=== PATIENT | female | born 1990 | race Caucasian/White ===

== ENCOUNTER 2020-07-11 05:49 | Inpatient (IN) | payer OTHER ==
[2020-07-11] MEDS ORDERED: Calcium Carbonate 500 MG Tab.Chew PO PRN (15:27)
[2020-07-11] MEDS ORDERED: Sodium Chloride 0.9% 10 ML Syringe FLUSH PRN (15:27)
[2020-07-11] MEDS ORDERED: Nalbuphine 10 MG/1 ML Vial IVPUSH PRN (15:27)
[2020-07-11] MEDS ORDERED: Oxytocin/Lactated Ringers 10 UNIT/1,000 ML BAG IV SCH ×2 (15:30)
[2020-07-11] MEDS ORDERED: Lactated Ringers 1,000 ML IV SCH (15:30)
[2020-07-11] MEDS ORDERED: Bupivacaine/fentaNYL/NS 100 ML Bag EPIDUR PRN (16:19)
[2020-07-11] MEDS ORDERED: fentaNYL 100 MCG/2 ML SDV EPIDUR PRN (16:19)
[2020-07-11] MEDS ORDERED: diphenhydrAMINE 50 MG/ML SDV IVPUSH PRN (16:19)
[2020-07-11] MEDS ORDERED: ePHEDrine 50 MG/ML SDV IVPUSH PRN (16:19)
[2020-07-11] MEDS ORDERED: Misoprostol 25 MCG (1/4 of 100 MCG) Tab ONE (16:37)
--- NOTE | 2020-07-11 16:47 | PCM.LDHP ---
L&D History of Present Illness - General Date of Service: 07/11/20 Admit Problem/Dx: Patient Status Order with Admit Dx/Problem 07/11/20 15:32 Patient Status [ADT] Routine Admission Diagnosis/Problem Admission Diagnosis/Problem Source of Information: Patient History Limitations: Reports: No Limitations - History of Present Illness Introduction:: Patient is a 29 y/o at 37 0/7 wks who presents for IOL for presumed cholestasis of labor. On 07/09 started to notice some itching of palms and soles of feet. This was most noticeable at night. Persisted all through the weekend. Called clinic this AM and asked to have bile acids drawn. Reviewed in office with patient that given classic symptoms could move on to IOL without waiting for results. Did review risks of cholestasis for . Also discussed that even if bile acids not elevated yet might be trending in that fashion. Did agree. Here now and a little apprehensive. Was planning a home delivery with direct-entry office services representative - Related Data Allergies/Adverse Reactions: Allergies Allergy/AdvReac Type Severity Reaction Status Date / Time No Known Allergies Allergy Verified 07/04/20 17:25 Home Medications: Home Meds [place]-3/DHA/Epa/Fish Oil [[place] 3 500 Softgel] 2 each PO DAILY 07/11/20 [History] Vit C/Ascorbate Calcium,Sodium [Vitamin C] 500 mg PO DAILY 07/11/20 [History] Zinc 20 mg PO DAILY 07/11/20 [History] Past Medical History : 1 Para: 0 LMP (Approximate): Neurological History: Reports: Migraines - Past Surgical History Other Surgical History Comment: Past Surgical History Social & Family History - Tobacco Use Tobacco Use Status *Q: Never Tobacco User - Alcohol Use Alcohol Use History: No - Recreational Drug Use Recreational Drug Use: No H&P Review of Systems - Review of Systems: Review Of Systems: See Below General: Reports: No Symptoms Pulmonary: Reports: No Symptoms Cardiovascular: Reports: No Symptoms Gastrointestinal: Reports: No Symptoms Genitourinary: Reports: No Symptoms Musculoskeletal: Reports: No Symptoms Psychiatric: Reports: No Symptoms Neurological: Reports: No Symptoms L&D Exam - Exam Exam: See Below - Vital Signs Vital Signs: Last Vital Signs Temp 37.8 C 07/11/20 15:32 Pulse 93 07/11/20 15:32 Resp 16 07/11/20 15:32 BP 109/74 07/11/20 15:32 Pulse Ox 97 07/11/20 15:32 Weight: 79.832 kg - OB Specific Contraction Intensity: Irritability Movement: Active Heart Tones: Present Heart Tones per Min: 130 Heart Rate (FHR) Variability: Moderate (6-25 bmp) Presentation: Vertex - Exam General: Alert, Oriented, Cooperative Lungs: Clear to Auscultation, Normal Respiratory Effort Cardiovascular: Regular Rate, Regular Rhythm GI/Abdominal Exam: Soft, Non-Tender Genitourinary: Normal external exam Extremities: Normal Inspection Skin: Warm, Dry, Intact - Patient Data Lab Results Last 24 hrs: Laboratory Results - last 24 hr 07/11/20 07/11/20 Range/Units 15:30 15:49 WBC 10.87 H (3.98-10.04) K/mm3 RBC 3.70 L (3.98-5.22) M/mm3 Hgb 10.6 L (11.2-15.7) gm/dl Hct 33.1 L (34.1-44.9) % MCV 89.5 (79.4-94.8) fl MCH 28.6 (25.6-32.2) pg MCHC 32.0 L (32.2-35.5) g/dl RDW Std Deviation 40.7 (36.4-46.3) fL Plt Count 254 (182-369) K/mm3 MPV 10.4 (9.4-12.3) fl Neut % (Auto) 72.2 H (34.0-71.1) % Lymph % (Auto) 16.7 L (19.3-51.7) % [place] % (Auto) 8.8 (4.7-12.5) % Eos % (Auto) 0.6 L (0.7-5.8) Baso % (Auto) 0.2 (0.1-1.2) % Neut # (Auto) 7.86 H (1.56-6.13) K/mm3 Lymph # (Auto) 1.81 (1.18-3.74) K/mm3 [place] # (Auto) 0.96 H (0.24-0.36) K/mm3 Eos # (Auto) 0.06 (0.04-0.36) K/mm3 Baso # (Auto) 0.02 (0.01-0.08) K/mm3 SARS-CoV-2 RNA (MARCOS) Positive H (NEGATIVE) Result Diagrams: 07/11/20 15:49 - Problem List (1) 37 weeks gestation of SNOMED Code(s): 02791325 ICD Code: Z3A.37 - 37 WEEKS GESTATION OF Status: Acute Current Visit: Yes (2) Cholestasis during SNOMED Code(s): 329126035 ICD Code: O26.619 - LIVER AND BILIARY TRACT DISORD IN , UNSP TRIMESTER; K83.1 - OBSTRUCTION OF BILE DUCT Status: Acute Current Visit: Yes Qualifiers: Trimester: third trimester Qualified Code(s): O26.613 - Liver and biliary tract disorders in , third trimester; K83.1 - Obstruction of bile duct Problem List Initiated/Reviewed/Updated: Yes Orders Last 24hrs: Active Orders 24 hr Category Date Time Status Patient Status [ADT] Routine ADT 07/11/20 15:32 Active Activity as Tolerated [RC] PFP Care 07/11/20 15:32 Active Communication Order [RC] ASDIRECTED Care 07/11/20 15:32 Active Heart Tones [RC] ASDIRECTED Care 07/11/20 15:33 Active Non Stress Test [RC] PER UNIT ROUTINE Care 07/11/20 15:32 Active Notify Provider [RC] ASDIRECTED Care 07/11/20 16:19 Active Notify Provider [RC] PFP Care 07/11/20 15:32 Active Notify Provider [RC] PRN Care 07/11/20 15:32 Active Peripheral IV Care [RC] . DIRECTED Care 07/11/20 15:33 Active Urinary Catheter Assessment [RC] ASDIRECTED Care 07/11/20 15:27 Active Vital Signs [RC] PER UNIT ROUTINE Care 07/11/20 15:32 Active Regular Diet [DIET] Diet 07/11/20 Dinner Active HEP C VIRUS AB [REF] Routine Lab 07/11/20 15:49 Received RAPID PLASMA REAGIN,RPR [CHEM] Routine Lab 07/11/20 15:49 Received Bupivacaine/fentaNYL/NS [fentaNYL/Bupivacaine/NS 2 MCG- Med 07/11/20 16:19 Active 0.125% 100 ML] 100 ml EPIDUR ASDIRECTED PRN Calcium Carbonate [Tums] Med 07/11/20 15:27 Active 1,000 mg PO Q2H PRN Lactated Ringers [Ringers, Lactated] 1,000 ml Med 07/11/20 15:30 Active IV ASDIRECTED Nalbuphine [Nubain] Med 07/11/20 15:27 Active 10 mg IVPUSH Q2H PRN Oxytocin/Lactated Ringers [Pitocin in LR 10 Units/1,000 Med 07/11/20 15:30 Active ML] 10 unit in 1,000 ml IV .CONTINUOUS Oxytocin/Lactated Ringers [Pitocin in LR 10 Units/1,000 Med 07/11/20 15:30 Active ML] 10 unit in 1,000 ml IV TITRATE Sodium Chloride 0.9% [Saline Flush] Med 07/11/20 15:27 Active 10 ml FLUSH ASDIRECTED PRN diphenhydrAMINE [Benadryl] Med 07/11/20 16:19 Active 25 mg IVPUSH Q6H PRN ePHEDrine [ePHEDrine sulfate] Med 07/11/20 16:19 Active 5 mg IVPUSH ASDIRECTED PRN fentaNYL [Sublimaze] Med 07/11/20 16:19 Active 100 mcg EPIDUR Q3H PRN Electronic Heart Tones Ext w TOCO [WOMSER] Oth 07/11/20 15:32 Ordered Routine Electronic Heart Tones Internal [WOMSER] Per Unit Oth 07/11/20 15:32 Ordered Routine Peripheral IV Insertion Adult [OM.PC] Routine Oth 07/11/20 15:32 Ordered Resuscitation Status Routine Resus Stat 07/11/20 15:27 Ordered Medication Orders Calcium Carbonate/Glycine (Calcium Carbonate 500 Mg Tab.Chew) 1,000 mg PO Q2H PRN PRN Reason: Indigestion Diphenhydramine HCl (Diphenhydramine 50 Mg/Ml Sdv) 25 mg IVPUSH Q6H PRN PRN Reason: pruritis Ephedrine Sulfate (Ephedrine 50 Mg/Ml Sdv) 5 mg IVPUSH ASDIRECTED PRN PRN Reason: Hypotension Fentanyl (Fentanyl 100 Mcg/2 Ml Sdv) 100 mcg EPIDUR Q3H PRN PRN Reason: Pain Fentanyl/Bupivacaine HCl (Bupivacaine/Fentanyl/Ns 100 Ml Bag) 100 ml EPIDUR ASDIRECTED PRN PRN Reason: Pain Oxytocin/Lactated Ringer's (Pitocin In Lr 10 Units/1,000 Ml) 10 unit in 1,000 mls @ 500 mls/hr IV .CONTINUOUS VIV Oxytocin/Lactated Ringer's (Pitocin In Lr 10 Units/1,000 Ml) 10 unit in 1,000 mls @ 12 mls/hr IV TITRATE VIV; Protocol Lactated Ringer's (Ringers, Lactated) 1,000 mls @ 100 mls/hr IV ASDIRECTED VIV Nalbuphine HCl (Nalbuphine 10 Mg/1 Ml Vial) 10 mg IVPUSH Q2H PRN PRN Reason: Pain Sodium Chloride (Sodium Chloride 0.9% 10 Ml Syringe) 10 ml FLUSH ASDIRECTED PRN PRN Reason: Keep Vein Open Assessment/Plan Comment:: * Bile acids pending at [place]. CMP done previously and WNL. Continuous monitoring * CBC, RPR, Hep C * Cytotec for IOL to start. Prefers no SVE and so not done. * Reviewed plan and Peds preferences * COVID positive, reviewed PPE
[2020-07-11] MEDS ORDERED: Acetaminophen 325 MG Tab PO PRN (19:20)
[2020-07-11] MEDS ORDERED: Misoprostol 25 MCG (1/4 of 100 MCG) Tab VAG SCH (21:00)
[2020-07-12] MEDS ORDERED: Misoprostol 25 MCG (1/4 of 100 MCG) Tab VAG SCH (04:00)
--- NOTE | 2020-07-12 07:01 | PCM.PNLD ---
Labor Progress Note - VS & Meds Vital Signs: Last Vital Signs Temp 37.8 C 07/11/20 15:32 Pulse 93 07/11/20 15:32 Resp 16 07/11/20 15:32 BP 109/74 07/11/20 15:32 Pulse Ox 97 07/11/20 15:32 Active Medications: Current Medications Acetaminophen (Acetaminophen 325 Mg Tab) 650 mg PO Q4H PRN PRN Reason: Fever Calcium Carbonate/Glycine (Calcium Carbonate 500 Mg Tab.Chew) 1,000 mg PO Q2H PRN PRN Reason: Indigestion Diphenhydramine HCl (Diphenhydramine 50 Mg/Ml Sdv) 25 mg IVPUSH Q6H PRN PRN Reason: pruritis Ephedrine Sulfate (Ephedrine 50 Mg/Ml Sdv) 5 mg IVPUSH ASDIRECTED PRN PRN Reason: Hypotension Fentanyl (Fentanyl 100 Mcg/2 Ml Sdv) 100 mcg EPIDUR Q3H PRN PRN Reason: Pain Fentanyl/Bupivacaine HCl (Bupivacaine/Fentanyl/Ns 100 Ml Bag) 100 ml EPIDUR ASDIRECTED PRN PRN Reason: Pain Oxytocin/Lactated Ringer's (Pitocin In Lr 10 Units/1,000 Ml) 10 unit in 1,000 mls @ 500 mls/hr IV .CONTINUOUS VIV Oxytocin/Lactated Ringer's (Pitocin In Lr 10 Units/1,000 Ml) 10 unit in 1,000 mls @ 12 mls/hr IV TITRATE VIV; Protocol Lactated Ringer's (Ringers, Lactated) 1,000 mls @ 100 mls/hr IV ASDIRECTED VIV Misoprostol (Misoprostol 25 Mcg (1/4 Of 100 Mcg) Tab) 25 mcg VAG Q4H VIV Stop: 07/12/20 08:01 Last Admin: 07/12/20 06:11 Dose: 25 mcg Documented by: Nalbuphine HCl (Nalbuphine 10 Mg/1 Ml Vial) 10 mg IVPUSH Q2H PRN PRN Reason: Pain Sodium Chloride (Sodium Chloride 0.9% 10 Ml Syringe) 10 ml FLUSH ASDIRECTED PRN PRN Reason: Keep Vein Open Discontinued Medications Misoprostol (Misoprostol 25 Mcg (1/4 Of 100 Mcg) Tab) Confirm Administered Dose 25 mcg .ROUTE .STK-MED ONE Stop: 07/11/20 16:38 Last Admin: 07/11/20 16:41 Dose: 25 mcg Documented by: Misoprostol (Misoprostol 25 Mcg (1/4 Of 100 Mcg) Tab) 25 mcg VAG Q4H VIV Stop: 07/12/20 05:01 Last Admin: 07/11/20 23:41 Dose: 25 mcg Documented by: - Uterine Contractions Uterine Monitoring Mode: External [place] Contraction Intensity: Mild Uterine Resting Tone: Soft - Monitoring Monitor Mode: External Ultrasound Heart Rate (FHR) Baseline: 135 Heart Rate (FHR) Variability: Moderate (6-25 bmp) Accelerations: Present, 15x15 Decelerations: None Strip Review: Category I - Vaginal Exam Dilation (cm): 3 Effacement (Percent): 75 Station: -1 Cervical Position: Midposition - Labor Progress (Free Text) Labor Progress: Doing well. S/p 3 doses of Cytotec. Will move on to breast stimulation after cytotec wears off
--- NOTE | 2020-07-12 12:37 | PCM.SN.2 ---
- Free Text/Narrative Note: 1215 This AM patient tried breast stimulation to continue labor process. Had some variable decelerations with this. Feels some contractions, but that they are spaced. Wondering options to go forward. FHT's otherwise reassuring. Reviewed options of repeat attempt a breast stimulation, IV pitocin, one further dose of Cytotec, or AROM. Discussed pros/cons of various options. At this time patient would like to rest/nap and then likely will go back to breast stimulation. Kathy Yoder MD
--- NOTE | 2020-07-12 21:58 | PCM.SN.2 ---
- Free Text/Narrative Note: 2100 Patient has been using intermittent breast pumping throughout the day. Has felt contractions on and off throughout the day. Rates as a 08/18. SVE unchanged from about 14 hours ago. Reviewed options on continuing induction. Patient and her do not want any intervention overnight. Would like to rest. Will likely go forward with either pitocin or AROM tomorrow. Will keep on monitors overnight Kathy Yoder MD
--- NOTE | 2020-07-13 07:17 | PCM.SN.2 ---
- Free Text/Narrative Note: 0715 Patient slept well overnight. Maybe noted a slight trickle this AM. Not sure if amniotic fluid or not. After discussion again with her have decided they would like to go forward with Pitocin augmentation this AM. Will reassess bile acids today. First lab not back yet and was drawn non fasting out of necessity. Still with some itching, but less noticeable that prior. Kathy Yoder MD
[2020-07-13] MEDS ORDERED: fentaNYL 100 MCG/2 ML SDV EPIDUR PRN (07:21)
[2020-07-13] MEDS ORDERED: ePHEDrine 50 MG/ML SDV IVPUSH PRN (07:21)
[2020-07-13] MEDS ORDERED: Ondansetron 4 MG/2 ML SDV IVPUSH PRN (07:21)
--- NOTE | 2020-07-13 07:26 | PCM.PREANE ---
Preanesthetic Assessment - Procedure Proposed Procedure: Epidural - Anesthesia/Transfusion/Family Hx Anesthesia History: No Prior Anesthesia Family History of Anesthesia Reaction: No Transfusion History: No Prior Transfusion(s) Intubation History: Unknown - Review of Systems General: No Symptoms Pulmonary: No Symptoms (Covid +: asymptomatic, ETOH: rarely) Cardiovascular: No Symptoms Gastrointestinal: No Symptoms (Cholestasis with ), Abdominal Pain (#6/10 contraction pain) Neurological: Headache (migraines) Other: Reports: None - Physical Assessment NPO Status Date: 07/13/20 NPO Status Time: 08:30 Vital Signs: Last Vital Signs Temp 37.8 C 07/11/20 15:32 Pulse 93 07/11/20 15:32 Resp 16 07/11/20 15:32 BP 109/74 07/11/20 15:32 Pulse Ox 97 07/11/20 15:32 Height: 1.68 m Weight: 79.832 kg ASA Class: 2 Mental Status: Alert & Oriented x3 Airway Class: Mallampati = 2 Dentition: Reports: Normal Dentition, Caries Thyro-Mental Finger Breadths: 3 Mouth Opening Finger Breadths: 3 ROM/Head Extension: Full Lungs: Clear to Auscultation, Normal Respiratory Effort Cardiovascular: Regular Rate, Regular Rhythm, No Murmurs - Lab Values: Laboratory Last Values WBC 10.87 K/mm3 (3.98-10.04) H 07/11/20 15:49 RBC 3.70 M/mm3 (3.98-5.22) L 07/11/20 15:49 Hgb 10.6 gm/dl (11.2-15.7) L 07/11/20 15:49 Hct 33.1 % (34.1-44.9) L 07/11/20 15:49 MCV 89.5 fl (79.4-94.8) 07/11/20 15:49 MCH 28.6 pg (25.6-32.2) 07/11/20 15:49 MCHC 32.0 g/dl (32.2-35.5) L 07/11/20 15:49 RDW Std Deviation 40.7 fL (36.4-46.3) 07/11/20 15:49 Plt Count 254 K/mm3 (182-369) 07/11/20 15:49 MPV 10.4 fl (9.4-12.3) 07/11/20 15:49 Neut % (Auto) 72.2 % (34.0-71.1) H 07/11/20 15:49 Lymph % (Auto) 16.7 % (19.3-51.7) L 07/11/20 15:49 [place] % (Auto) 8.8 % (4.7-12.5) 07/11/20 15:49 Eos % (Auto) 0.6 (0.7-5.8) L 07/11/20 15:49 Baso % (Auto) 0.2 % (0.1-1.2) 07/11/20 15:49 Neut # (Auto) 7.86 K/mm3 (1.56-6.13) H 07/11/20 15:49 Lymph # (Auto) 1.81 K/mm3 (1.18-3.74) 07/11/20 15:49 [place] # (Auto) 0.96 K/mm3 (0.24-0.36) H 07/11/20 15:49 Eos # (Auto) 0.06 K/mm3 (0.04-0.36) 07/11/20 15:49 Baso # (Auto) 0.02 K/mm3 (0.01-0.08) 07/11/20 15:49 RPR Non-reactive (NONREACTIVE) 07/11/20 15:49 SARS-CoV-2 RNA (MARCOS) Positive (NEGATIVE) H 07/11/20 15:30 Blood Type O NEGATIVE 07/11/20 15:49 Gel Antibody Screen Negative 07/11/20 15:49 Above labs reviewed and noted and within acceptable ranges to proceed with epidural if desired. - Allergies Allergies/Adverse Reactions: Allergies Allergy/AdvReac Type Severity Reaction Status Date / Time No Known Allergies Allergy Verified 07/04/20 17:25 - Anesthesia Plan Pre-Op Medication Ordered: None - Acknowledgements Anesthesia Type Planned: Epidural Pt an Appropriate Candidate for the Planned Anesthesia: Yes Alternatives and Risks of Anesthesia Discussed w Pt/Guardian: Yes Pt/Guardian Understands and Agrees with Anesthesia Plan: Yes PreAnesthesia Questionnaire - Past Health History Medical/Surgical History: Denies Medical/Surgical History Respiratory History: Reports: Other (See Below) Other Respiratory History: upper resp infection last week Neurological History: Reports: Migraines - Past Surgical History Other Surgical History Comment: Past Surgical History - SUBSTANCE USE Tobacco Use Status *Q: Never Tobacco User Second Hand Smoke Exposure: No Recreational Drug Use History: No - HOME MEDS Home Medications: Home Meds [place]-3/DHA/Epa/Fish Oil [[place] 3 500 Softgel] 2 each PO DAILY 07/11/20 [History] Vit C/Ascorbate Calcium,Sodium [Vitamin C] 500 mg PO DAILY 07/11/20 [History] Zinc 20 mg PO DAILY 07/11/20 [History] - CURRENT (IN HOUSE) MEDS Current Meds: Current Medications Acetaminophen (Acetaminophen 325 Mg Tab) 650 mg PO Q4H PRN PRN Reason: Fever Calcium Carbonate/Glycine (Calcium Carbonate 500 Mg Tab.Chew) 1,000 mg PO Q2H PRN PRN Reason: Indigestion Diphenhydramine HCl (Diphenhydramine 50 Mg/Ml Sdv) 25 mg IVPUSH Q6H PRN PRN Reason: pruritis Ephedrine Sulfate (Ephedrine 50 Mg/Ml Sdv) 5 mg IVPUSH ASDIRECTED PRN PRN Reason: Hypotension Ephedrine Sulfate (Ephedrine 50 Mg/Ml Sdv) 5 mg IVPUSH ASDIRECTED PRN PRN Reason: Hypotension Fentanyl (Fentanyl 100 Mcg/2 Ml Sdv) 100 mcg EPIDUR Q3H PRN PRN Reason: Pain Fentanyl (Fentanyl 100 Mcg/2 Ml Sdv) 100 mcg EPIDUR Q3H PRN PRN Reason: Pain Fentanyl/Bupivacaine HCl (Bupivacaine/Fentanyl/Ns 100 Ml Bag) 100 ml EPIDUR ASDIRECTED PRN PRN Reason: Pain Fentanyl/Bupivacaine HCl (Bupivacaine/Fentanyl/Ns 100 Ml Bag) 100 ml EPIDUR ASDIRECTED VIV Oxytocin/Lactated Ringer's (Pitocin In Lr 10 Units/1,000 Ml) 10 unit in 1,000 mls @ 500 mls/hr IV .CONTINUOUS VIV Oxytocin/Lactated Ringer's (Pitocin In Lr 10 Units/1,000 Ml) 10 unit in 1,000 mls @ 12 mls/hr IV TITRATE VIV; Protocol Lactated Ringer's (Ringers, Lactated) 1,000 mls @ 100 mls/hr IV ASDIRECTED VIV Miscellaneous Medication (Phenylephrine Hcl In 0.9% Nacl 1 Mg/10 Ml Syringe) 0.1 mg IVPUSH Q10M PRN PRN Reason: Hypotension Nalbuphine HCl (Nalbuphine 10 Mg/1 Ml Vial) 10 mg IVPUSH Q2H PRN PRN Reason: Pain Ondansetron HCl (Ondansetron 4 Mg/2 Ml Sdv) 4 mg IVPUSH ONETIME PRN PRN Reason: Nausea/Vomiting Sodium Chloride (Sodium Chloride 0.9% 10 Ml Syringe) 10 ml FLUSH ASDIRECTED PRN PRN Reason: Keep Vein Open Discontinued Medications Misoprostol (Misoprostol 25 Mcg (1/4 Of 100 Mcg) Tab) Confirm Administered Dose 25 mcg .ROUTE .ST-MED [facility] Stop: 07/11/20 16:38 Last Admin: 07/11/20 16:41 Dose: 25 mcg Documented by: Misoprostol (Misoprostol 25 Mcg (1/4 Of 100 Mcg) Tab) 25 mcg VAG Q4H [facility] Stop: 07/12/20 05:01 Last Admin: 07/11/20 23:41 Dose: 25 mcg Documented by: Misoprostol (Misoprostol 25 Mcg (1/4 Of 100 Mcg) Tab) 25 mcg VAG Q4H [facility] Stop: 07/12/20 08:01 Last Admin: 07/12/20 06:11 Dose: 25 mcg Documented by:
[2020-07-13] MEDS ORDERED: Bupivacaine/fentaNYL/NS 100 ML Bag EPIDUR SCH (07:30)
--- NOTE | 2020-07-13 12:27 | PCM.PNLD ---
Labor Progress Note - VS & Meds Vital Signs: Last Vital Signs Temp 37.8 C 07/11/20 15:32 Pulse 93 07/11/20 15:32 Resp 16 07/11/20 15:32 BP 109/74 07/11/20 15:32 Pulse Ox 97 07/11/20 15:32 Active Medications: Current Medications Acetaminophen (Acetaminophen 325 Mg Tab) 650 mg PO Q4H PRN PRN Reason: Fever Calcium Carbonate/Glycine (Calcium Carbonate 500 Mg Tab.Chew) 1,000 mg PO Q2H PRN PRN Reason: Indigestion Diphenhydramine HCl (Diphenhydramine 50 Mg/Ml Sdv) 25 mg IVPUSH Q6H PRN PRN Reason: pruritis Ephedrine Sulfate (Ephedrine 50 Mg/Ml Sdv) 5 mg IVPUSH ASDIRECTED PRN PRN Reason: Hypotension Fentanyl (Fentanyl 100 Mcg/2 Ml Sdv) 100 mcg EPIDUR Q3H PRN PRN Reason: Pain Fentanyl/Bupivacaine HCl (Bupivacaine/Fentanyl/Ns 100 Ml Bag) 100 ml EPIDUR ASDIRECTED VIV Oxytocin/Lactated Ringer's (Pitocin In Lr 10 Units/1,000 Ml) 10 unit in 1,000 mls @ 500 mls/hr IV .CONTINUOUS VIV Oxytocin/Lactated Ringer's (Pitocin In Lr 10 Units/1,000 Ml) 10 unit in 1,000 mls @ 12 mls/hr IV TITRATE VIV; Protocol Last Titration: 07/13/20 11:57 Dose: 8 munits/min, 48 mls/hr Documented by: Lactated Ringer's (Ringers, Lactated) 1,000 mls @ 100 mls/hr IV ASDIRECTED VIV Last Admin: 07/13/20 08:07 Dose: 100 mls/hr Documented by: Miscellaneous Medication (Phenylephrine Hcl In 0.9% Nacl 1 Mg/10 Ml Syringe) 0.1 mg IVPUSH Q10M PRN PRN Reason: Hypotension Nalbuphine HCl (Nalbuphine 10 Mg/1 Ml Vial) 10 mg IVPUSH Q2H PRN PRN Reason: Pain Ondansetron HCl (Ondansetron 4 Mg/2 Ml Sdv) 4 mg IVPUSH ONETIME PRN PRN Reason: Nausea/Vomiting Sodium Chloride (Sodium Chloride 0.9% 10 Ml Syringe) 10 ml FLUSH ASDIRECTED PRN PRN Reason: Keep Vein Open Discontinued Medications Ephedrine Sulfate (Ephedrine 50 Mg/Ml Sdv) 5 mg IVPUSH ASDIRECTED PRN PRN Reason: Hypotension Fentanyl (Fentanyl 100 Mcg/2 Ml Sdv) 100 mcg EPIDUR Q3H PRN PRN Reason: Pain Fentanyl/Bupivacaine HCl (Bupivacaine/Fentanyl/Ns 100 Ml Bag) 100 ml EPIDUR ASDIRECTED PRN PRN Reason: Pain Misoprostol (Misoprostol 25 Mcg (1/4 Of 100 Mcg) Tab) Confirm Administered Dose 25 mcg .ROUTE .STK-MED ONE Stop: 07/11/20 16:38 Last Admin: 07/11/20 16:41 Dose: 25 mcg Documented by: Misoprostol (Misoprostol 25 Mcg (1/4 Of 100 Mcg) Tab) 25 mcg VAG Q4H [facility] Stop: 07/12/20 05:01 Last Admin: 07/11/20 23:41 Dose: 25 mcg Documented by: Misoprostol (Misoprostol 25 Mcg (1/4 Of 100 Mcg) Tab) 25 mcg VAG Q4H [facility] Stop: 07/12/20 08:01 Last Admin: 07/12/20 06:11 Dose: 25 mcg Documented by: - Uterine Contractions Uterine Monitoring Mode: External [place] Contraction Intensity: Mild Uterine Resting Tone: Soft - Monitoring Monitor Mode: External Ultrasound Heart Rate (FHR) Baseline: 135 Heart Rate (FHR) Variability: Moderate (6-25 bmp) Accelerations: Present, 15x15 Decelerations: None Strip Review: Category I - Labor Progress (Free Text) Labor Progress: Doing well. Rates contractions as a 7/10 with pitocin. Continue present management
--- NOTE | 2020-07-13 18:55 | PCM.PNLD ---
Labor Progress Note - VS & Meds Vital Signs: Last Vital Signs Temp 37.8 C 07/11/20 15:32 Pulse 93 07/11/20 15:32 Resp 16 07/11/20 15:32 BP 109/74 07/11/20 15:32 Pulse Ox 97 07/11/20 15:32 Active Medications: Current Medications Acetaminophen (Acetaminophen 325 Mg Tab) 650 mg PO Q4H PRN PRN Reason: Fever Calcium Carbonate/Glycine (Calcium Carbonate 500 Mg Tab.Chew) 1,000 mg PO Q2H PRN PRN Reason: Indigestion Diphenhydramine HCl (Diphenhydramine 50 Mg/Ml Sdv) 25 mg IVPUSH Q6H PRN PRN Reason: pruritis Ephedrine Sulfate (Ephedrine 50 Mg/Ml Sdv) 5 mg IVPUSH ASDIRECTED PRN PRN Reason: Hypotension Fentanyl (Fentanyl 100 Mcg/2 Ml Sdv) 100 mcg EPIDUR Q3H PRN PRN Reason: Pain Fentanyl/Bupivacaine HCl (Bupivacaine/Fentanyl/Ns 100 Ml Bag) 100 ml EPIDUR ASDIRECTED VIV Oxytocin/Lactated Ringer's (Pitocin In Lr 10 Units/1,000 Ml) 10 unit in 1,000 mls @ 500 mls/hr IV .CONTINUOUS VIV Oxytocin/Lactated Ringer's (Pitocin In Lr 10 Units/1,000 Ml) 10 unit in 1,000 mls @ 12 mls/hr IV TITRATE VIV; Protocol Last Titration: 07/13/20 18:28 Dose: 20 munits/min, 120 mls/hr Documented by: Lactated Ringer's (Ringers, Lactated) 1,000 mls @ 100 mls/hr IV ASDIRECTED VIV Last Admin: 07/13/20 08:07 Dose: 100 mls/hr Documented by: Miscellaneous Medication (Phenylephrine Hcl In 0.9% Nacl 1 Mg/10 Ml Syringe) 0.1 mg IVPUSH Q10M PRN PRN Reason: Hypotension Nalbuphine HCl (Nalbuphine 10 Mg/1 Ml Vial) 10 mg IVPUSH Q2H PRN PRN Reason: Pain Ondansetron HCl (Ondansetron 4 Mg/2 Ml Sdv) 4 mg IVPUSH ONETIME PRN PRN Reason: Nausea/Vomiting Sodium Chloride (Sodium Chloride 0.9% 10 Ml Syringe) 10 ml FLUSH ASDIRECTED PRN PRN Reason: Keep Vein Open Discontinued Medications Ephedrine Sulfate (Ephedrine 50 Mg/Ml Sdv) 5 mg IVPUSH ASDIRECTED PRN PRN Reason: Hypotension Fentanyl (Fentanyl 100 Mcg/2 Ml Sdv) 100 mcg EPIDUR Q3H PRN PRN Reason: Pain Fentanyl/Bupivacaine HCl (Bupivacaine/Fentanyl/Ns 100 Ml Bag) 100 ml EPIDUR ASDIRECTED PRN PRN Reason: Pain Misoprostol (Misoprostol 25 Mcg (1/4 Of 100 Mcg) Tab) Confirm Administered Dose 25 mcg .ROUTE .STK-MED ONE Stop: 07/11/20 16:38 Last Admin: 07/11/20 16:41 Dose: 25 mcg Documented by: Misoprostol (Misoprostol 25 Mcg (1/4 Of 100 Mcg) Tab) 25 mcg VAG Q4H [facility] Stop: 07/12/20 05:01 Last Admin: 07/11/20 23:41 Dose: 25 mcg Documented by: Misoprostol (Misoprostol 25 Mcg (1/4 Of 100 Mcg) Tab) 25 mcg VAG Q4H [facility] Stop: 07/12/20 08:01 Last Admin: 07/12/20 06:11 Dose: 25 mcg Documented by: - Uterine Contractions Uterine Monitoring Mode: External Zarate Contraction Intensity: Mild to Moderate Uterine Resting Tone: Soft - Monitoring Monitor Mode: External Ultrasound Heart Rate (FHR) Baseline: 140 Heart Rate (FHR) Variability: Moderate (6-25 bmp) Accelerations: Present, 15x15 Decelerations: None Strip Review: Category I - Vaginal Exam Dilation (cm): 4 Effacement (Percent): 75 Station: -1 Cervical Position: Anterior - Labor Progress (Free Text) Labor Progress: Pitocin started this AM around 0800. Currently at 20. In last 2 hours has really felt contractions get more intense. Will continue to increase per protocol. Reviewed if gets to 30 and stays at that dose for a few hours would then recommend reassessing and see if AROM would be appropriate. Will consider
[2020-07-13] MEDS ORDERED: Oxytocin/Lactated Ringers 20 UNIT/1,000 ML BAG IV SCH (21:45)
--- NOTE | 2020-07-14 03:28 | PCM.PNLD ---
Labor Progress Note - VS & Meds Vital Signs: Last Vital Signs Temp 37.8 C 07/11/20 15:32 Pulse 93 07/11/20 15:32 Resp 16 07/11/20 15:32 BP 109/74 07/11/20 15:32 Pulse Ox 97 07/11/20 15:32 Active Medications: Current Medications Acetaminophen (Acetaminophen 325 Mg Tab) 650 mg PO Q4H PRN PRN Reason: Fever Calcium Carbonate/Glycine (Calcium Carbonate 500 Mg Tab.Chew) 1,000 mg PO Q2H PRN PRN Reason: Indigestion Diphenhydramine HCl (Diphenhydramine 50 Mg/Ml Sdv) 25 mg IVPUSH Q6H PRN PRN Reason: pruritis Ephedrine Sulfate (Ephedrine 50 Mg/Ml Sdv) 5 mg IVPUSH ASDIRECTED PRN PRN Reason: Hypotension Fentanyl (Fentanyl 100 Mcg/2 Ml Sdv) 100 mcg EPIDUR Q3H PRN PRN Reason: Pain Fentanyl/Bupivacaine HCl (Bupivacaine/Fentanyl/Ns 100 Ml Bag) 100 ml EPIDUR ASDIRECTED VIV Oxytocin/Lactated Ringer's (Pitocin In Lr 10 Units/1,000 Ml) 10 unit in 1,000 mls @ 500 mls/hr IV .CONTINUOUS VIV Oxytocin/Lactated Ringer's (Pitocin In Lr 10 Units/1,000 Ml) 10 unit in 1,000 mls @ 12 mls/hr IV TITRATE VIV; Protocol Last Titration: 07/13/20 18:28 Dose: 20 munits/min, 120 mls/hr Documented by: Lactated Ringer's (Ringers, Lactated) 1,000 mls @ 100 mls/hr IV ASDIRECTED VIV Last Admin: 07/13/20 08:07 Dose: 100 mls/hr Documented by: Oxytocin/Lactated Ringer's (Pitocin In Lr 20 Units/1,000 Ml) 20 unit in 1,000 mls @ 63 mls/hr IV TITRATE VIV; Protocol Last Admin: 07/13/20 21:48 Dose: 63 mls/hr Documented by: Miscellaneous Medication (Phenylephrine Hcl In 0.9% Nacl 1 Mg/10 Ml Syringe) 0.1 mg IVPUSH Q10M PRN PRN Reason: Hypotension Nalbuphine HCl (Nalbuphine 10 Mg/1 Ml Vial) 10 mg IVPUSH Q2H PRN PRN Reason: Pain Ondansetron HCl (Ondansetron 4 Mg/2 Ml Sdv) 4 mg IVPUSH ONETIME PRN PRN Reason: Nausea/Vomiting Sodium Chloride (Sodium Chloride 0.9% 10 Ml Syringe) 10 ml FLUSH ASDIRECTED PRN PRN Reason: Keep Vein Open Discontinued Medications Ephedrine Sulfate (Ephedrine 50 Mg/Ml Sdv) 5 mg IVPUSH ASDIRECTED PRN PRN Reason: Hypotension Fentanyl (Fentanyl 100 Mcg/2 Ml Sdv) 100 mcg EPIDUR Q3H PRN PRN Reason: Pain Fentanyl/Bupivacaine HCl (Bupivacaine/Fentanyl/Ns 100 Ml Bag) 100 ml EPIDUR ASDIRECTED PRN PRN Reason: Pain Misoprostol (Misoprostol 25 Mcg (1/4 Of 100 Mcg) Tab) Confirm Administered Dose 25 mcg .ROUTE .[facility] Stop: 07/11/20 16:38 Last Admin: 07/11/20 16:41 Dose: 25 mcg Documented by: Misoprostol (Misoprostol 25 Mcg (1/4 Of 100 Mcg) Tab) 25 mcg VAG Q4H [facility] Stop: 07/12/20 05:01 Last Admin: 07/11/20 23:41 Dose: 25 mcg Documented by: Misoprostol (Misoprostol 25 Mcg (1/4 Of 100 Mcg) Tab) 25 mcg VAG Q4H [facility] Stop: 07/12/20 08:01 Last Admin: 07/12/20 06:11 Dose: 25 mcg Documented by: - Uterine Contractions Uterine Monitoring Mode: External [place] Contraction Intensity: Moderate Uterine Resting Tone: Soft - Monitoring Monitor Mode: External Ultrasound Heart Rate (FHR) Baseline: 125 Heart Rate (FHR) Variability: Moderate (6-25 bmp) Accelerations: Present, 15x15 Decelerations: None Strip Review: Category I - Vaginal Exam Dilation (cm): 7 Effacement (Percent): 90 Station: 0 Cervical Position: Anterior - Labor Progress (Free Text) Labor Progress: Doing well. Currently at 17. Now making good change. Continue present management
[2020-07-14] MEDS ORDERED: Lidocaine 1% 50 ML MDV ONE (05:33)
--- NOTE | 2020-07-14 06:18 | PCM.DEL ---
L & D Note - General Info Date of Service: 07/14/20 - Delivery Note Labor: Induced by Oxytocin Cervical Ripening Method: Misoprostil Delivery Outcome: Livebirth Delivery Method: Spontaneous Vaginal Delivery-Single Delivery Mode: Spontaneous Presentation: Right Occiput Anterior ([place]) Nuchal Cord: Present, Reduced Anesthesia Type: None Amniotic Fluid Description: Clear (per RN at one point thought saw light green color) Episiotomy Type: None Laceration: 1st Degree (hemostatic and so not repaired ) Placenta: Intact, Spontaneous Cord: 3 Vessels Estimated Blood Loss: 100 Resuscitation Needed: Yes : Bulb Syringe, Stimulated, Warmed, [place] Used, Warmer Used Delivery Comments (Free Text/Narrative):: Patient complete and pushing in hands and knees. With maternal pushing effort head delivered from [place] presentation. With gentle upward traction shoulder did not immediately delivery. Rotated to supine and then nuchal able to be palpated and reduced. With gentle downward traction shoulders delivered. Infant placed on maternal abdomen. Cord clamped and cut. Cord blood obtained. Placenta allowed time to separate and expelled intact. Inspection of perineum with small, hemostatic first degree laceration. Not repaired - General Info Date of Service: 07/14/20 - Patient Data Vitals - Most Recent: Last Vital Signs Temp 37.8 C 07/11/20 15:32 Pulse 93 07/11/20 15:32 Resp 16 07/11/20 15:32 BP 109/74 07/11/20 15:32 Pulse Ox 97 07/11/20 15:32 Weight - Most Recent: 79.832 kg - Problem List & Annotations (1) 37 weeks gestation of SNOMED Code(s): 75742942 Code(s): Z3A.37 - 37 WEEKS GESTATION OF Status: Acute Current Visit: Yes (2) Cholestasis during SNOMED Code(s): 291968226 Code(s): O26.619 - LIVER AND BILIARY TRACT DISORD IN , UNSP TRIMESTER; K83.1 - OBSTRUCTION OF BILE DUCT Status: Acute Current Visit: Yes Qualifiers: Trimester: third trimester Qualified Code(s): O26.613 - Liver and biliary tract disorders in , third trimester; K83.1 - Obstruction of bile duct (3) Rh negative state in antepartum period SNOMED Code(s): 576202175 Code(s): O26.899 - OTH RELATED CONDITIONS, UNSPECIFIED TRIMESTER; Z67.91 - UNSPECIFIED BLOOD TYPE, RH NEGATIVE Status: Acute Current Visit: Yes (4) Vaginal delivery SNOMED Code(s): 578380282 Code(s): O80 - ENCOUNTER FOR FULL-TERM UNCOMPLICATED DELIVERY Status: Acute Current Visit: Yes - Problem List Review Problem List Initiated/Reviewed/Updated: Yes - My Orders Last 24 Hours: My Active Orders 07/13/20 08:32 BILE ACIDS [REF] Routine 07/13/20 21:45 Oxytocin/Lactated Ringers [Pitocin in LR 20 Units/1,000 ML] 20 unit in 1,000 ml IV TITRATE - Assessment Assessment:: PPD#0 - Plan Plan:: * Routine cares * Breast feeding * Assess baby blood type, mom rh negative
[2020-07-14] MEDS ORDERED: Witch Hazel Medicated Pads 40/Jar TOP PRN (07:18)
[2020-07-14] MEDS ORDERED: Acetaminophen 325 MG Tab PO PRN (07:18)
[2020-07-14] MEDS ORDERED: Docusate Sodium 100 MG Cap PO PRN (07:18)
[2020-07-14] MEDS ORDERED: Ibuprofen 600 MG Tab PO PRN (07:18)
[2020-07-14] MEDS ORDERED: Benzocaine/Menthol 20%-0.5% Spray 56 GM Canister TOP PRN (07:18)
--- NOTE | 2020-07-15 00:44 | PCM.SN.2 ---
- Free Text/Narrative Note: 07/14/2020 1630 In for PM rounds. Patient feeling well overall. Sore, but not too heavy of bleeding. Baby is Rh positive. Reviewed recommendation for Rhogam. Discussed needed to prevent an isoimmunization event. Discussed implications of isoimmunization including anemia, hydrops, heart failure, need for transfusion, complications, etc. Patient wondering if screen could be done to see if actually mixing event occurred between her and baby. Reviewed that would not be done typically in this situation. Would recommend Rhogam regardless. She wants to consider further. Will let me know her decision in AM Kathy Yoder MD
--- NOTE | 2020-07-15 08:12 | PCM.PNPP ---
- General Info Date of Service: 07/15/20 Functional Status: Reports: Pain Controlled, Tolerating Diet, Ambulating, Urinating - Review of Systems General: Reports: No Symptoms Pulmonary: Reports: No Symptoms Cardiovascular: Reports: No Symptoms Gastrointestinal: Reports: No Symptoms Genitourinary: Reports: No Symptoms Musculoskeletal: Reports: No Symptoms Neurological: Reports: No Symptoms - Patient Data Vital Signs - Most Recent: Last Vital Signs Temp 36.7 C 07/14/20 20:45 Pulse 81 07/14/20 20:45 Resp 14 07/14/20 20:45 BP 125/90 07/14/20 20:45 Pulse Ox 96 07/14/20 20:45 Weight - Most Recent: 79.832 kg I&O - Last 24 Hours: Intake & Output 07/14/20 07/15/20 07/15/20 22:59 06:59 14:59 Intake Total 1040 Balance 1040 Lab Results - Last 24 Hours: Laboratory Results - last 24 hr 07/11/20 07/14/20 Range/Units 15:49 12:12 Hepatitis C Antibody <0.1 (0.0-0.9) s/co ratio Blood Type Cancelled Gel Antibody Screen Cancelled Screen 0 ros/5 flds - neg RhIG Candidate? Yes Rhogam Indicated Cancelled Med Orders - Current: Current Medications Acetaminophen (Acetaminophen 325 Mg Tab) 650 mg PO Q4H PRN PRN Reason: mild pain or fever Benzocaine/Menthol (Benzocaine/Menthol 20%-0.5% [place] 56 Gm Canister) 0 gm TOP ASDIRECTED PRN PRN Reason: Perineal Comfort Measure Docusate Sodium (Docusate Sodium 100 Mg Cap) 100 mg PO BID PRN PRN Reason: Constipation Ibuprofen (Ibuprofen 600 Mg Tab) 600 mg PO Q6H PRN PRN Reason: Mild pain or fever Witch Suly (Witch Suly Medicated Pads 40/Jar) 1 pad TOP ASDIRECTED PRN PRN Reason: Perineal Comfort Measure Discontinued Medications Acetaminophen (Acetaminophen 325 Mg Tab) 650 mg PO Q4H PRN PRN Reason: Fever Calcium Carbonate/Glycine (Calcium Carbonate 500 Mg Tab.Chew) 1,000 mg PO Q2H PRN PRN Reason: Indigestion Diphenhydramine HCl (Diphenhydramine 50 Mg/Ml Sdv) 25 mg IVPUSH Q6H PRN PRN Reason: pruritis Ephedrine Sulfate (Ephedrine 50 Mg/Ml Sdv) 5 mg IVPUSH ASDIRECTED PRN PRN Reason: Hypotension Ephedrine Sulfate (Ephedrine 50 Mg/Ml Sdv) 5 mg IVPUSH ASDIRECTED PRN PRN Reason: Hypotension Fentanyl (Fentanyl 100 Mcg/2 Ml Sdv) 100 mcg EPIDUR Q3H PRN PRN Reason: Pain Fentanyl (Fentanyl 100 Mcg/2 Ml Sdv) 100 mcg EPIDUR Q3H PRN PRN Reason: Pain Fentanyl/Bupivacaine HCl (Bupivacaine/Fentanyl/Ns 100 Ml Bag) 100 ml EPIDUR A SDIRECTED PRN PRN Reason: Pain Fentanyl/Bupivacaine HCl (Bupivacaine/Fentanyl/Ns 100 Ml Bag) 100 ml EPIDUR ASDIRECTED VIV Oxytocin/Lactated Ringer's (Pitocin In Lr 10 Units/1,000 Ml) 10 unit in 1,000 mls @ 500 mls/hr IV .CONTINUOUS VIV Oxytocin/Lactated Ringer's (Pitocin In Lr 10 Units/1,000 Ml) 10 unit in 1,000 mls @ 12 mls/hr IV TITRATE VIV; Protocol Last Titration: 07/13/20 18:28 Dose: 20 munits/min, 120 mls/hr Documented by: Lactated Ringer's (Ringers, Lactated) 1,000 mls @ 100 mls/hr IV ASDIRECTED VIV Last Admin: 07/13/20 08:07 Dose: 100 mls/hr Documented by: Oxytocin/Lactated Ringer's (Pitocin In Lr 20 Units/1,000 Ml) 20 unit in 1,000 mls @ 63 mls/hr IV TITRATE VIV; Protocol Last Admin: 07/13/20 21:48 Dose: 63 mls/hr Documented by: Lidocaine HCl (Lidocaine 1% 50 Ml Mdv) Confirm Administered Dose 0 ml .ROUTE .STK-MED ONE Stop: 07/14/20 05:34 Miscellaneous Medication (Phenylephrine Hcl In 0.9% Nacl 1 Mg/10 Ml Syringe) 0.1 mg IVPUSH Q10M PRN PRN Reason: Hypotension Misoprostol (Misoprostol 25 Mcg (1/4 Of 100 Mcg) Tab) Confirm Administered Dose 25 mcg .ROUTE .STK-MED ONE Stop: 07/11/20 16:38 Last Admin: 07/11/20 16:41 Dose: 25 mcg Documented by: Misoprostol (Misoprostol 25 Mcg (1/4 Of 100 Mcg) Tab) 25 mcg VAG Q4H [facility] Stop: 07/12/20 05:01 Last Admin: 07/11/20 23:41 Dose: 25 mcg Documented by: Misoprostol (Misoprostol 25 Mcg (1/4 Of 100 Mcg) Tab) 25 mcg VAG Q4H [facility] Stop: 07/12/20 08:01 Last Admin: 07/12/20 06:11 Dose: 25 mcg Documented by: Nalbuphine HCl (Nalbuphine 10 Mg/1 Ml Vial) 10 mg IVPUSH Q2H PRN PRN Reason: Pain Ondansetron HCl (Ondansetron 4 Mg/2 Ml Sdv) 4 mg IVPUSH ONETIME PRN PRN Reason: Nausea/Vomiting Sodium Chloride (Sodium Chloride 0.9% 10 Ml Syringe) 10 ml FLUSH ASDIRECTED PRN PRN Reason: Keep Vein Open - Infant Interaction Infant Disposition, : in Room with Family Infant Interaction: Holding Infant Feeding: Attempted ; Nursed Fair/Poor - Recovery Exam Fundal Tone: Firm Fundal Level: 1 Fingerbreadths Below Umbilicus Fundal Placement: Midline Lochia Amount: Small Lochia Color: Rubra/Red Perineum Description: Other (see below) Other Perinuem Description: no repaired 1st degree Episiotomy/Laceration: None Bladder Status: Voiding Urinary Elimination: Voided - Exam General: Alert, Oriented, Cooperative GI/Abdominal Exam: Soft - Problem List & Annotations (1) 37 weeks gestation of SNOMED Code(s): 73416132 Code(s): Z3A.37 - 37 WEEKS GESTATION OF Status: Acute Current Visit: Yes (2) Cholestasis during SNOMED Code(s): 452119473 Code(s): O26.619 - LIVER AND BILIARY TRACT DISORD IN , UNSP TRIMESTER; K83.1 - OBSTRUCTION OF BILE DUCT Status: Acute Current Visit: Yes Qualifiers: Trimester: third trimester Qualified Code(s): O26.613 - Liver and biliary tract disorders in , third trimester; K83.1 - Obstruction of bile duct (3) Rh negative state in antepartum period SNOMED Code(s): 668608704 Code(s): O26.899 - OTH RELATED CONDITIONS, UNSPECIFIED TRIMESTER; Z67.91 - UNSPECIFIED BLOOD TYPE, RH NEGATIVE Status: Acute Current Visit: Yes (4) Vaginal delivery SNOMED Code(s): 076688438 Code(s): O80 - ENCOUNTER FOR FULL-TERM UNCOMPLICATED DELIVERY Status: Acute Current Visit: Yes - Problem List Review Problem List Initiated/Reviewed/Updated: Yes - My Orders Last 24 Hours: My Active Orders 07/14/20 07:18 Acetaminophen [TylenoL] 650 mg PO Q4H PRN Benzocaine/Menthol [Dermoplast Pain Relief [place]] See Dose Instructions TOP ASDIRECTED PRN Docusate Sodium [Colace] 100 mg PO BID PRN Ibuprofen [Motrin] 600 mg PO Q6H PRN witch Suly [Tucks] 1 pad TOP ASDIRECTED PRN Heat Therapy [OM.PC] PRN 07/14/20 07:18 Activity as Tolerated [RC] PER UNIT ROUTINE Vital Signs [RC] 03,,15,21 Assess Lochia [WOMSER] Per Unit Routine Assess Uterine Involution [WOMSER] Per Unit Routine Breast Pump [WOMSER] Per Unit Routine Ice Therapy [OM.PC] Per Unit Routine Perineal Care [OM.PC] Per Unit Routine Peripheral IV Discontinue [OM.PC] Routine Sitz Bath [OM.PC] Per Unit Routine 07/14/20 12:12 SCREEN [BBK] Routine RH IMMUNE GLOBULIN [BBK] Routine 07/15/20 07:18 Heat Therapy [OM.PC] PRN 07/15/20 08:11 Ready for Discharge [RC] PER UNIT ROUTINE - Assessment Assessment:: PPD#1 - Plan Plan:: * Routine cares * Breast feeding * Patient agreeable to Rhogam, given today * Discharge today
--- NOTE | 2020-07-15 08:12 | PCM.DCSUM1 ---
Discharge Summary - Discharge Data Discharge Date: 07/15/20 Discharge Disposition: Home, Self-Care 01 Condition: Good - Referral to Home Health Primary Care Physician: Kathy Yoder MD - Discharge Diagnosis/Problem(s) (1) 37 weeks gestation of SNOMED Code(s): 88689523 ICD Code: Z3A.37 - 37 WEEKS GESTATION OF Status: Acute Current Visit: Yes (2) Cholestasis during SNOMED Code(s): 293975841 ICD Code: O26.619 - LIVER AND BILIARY TRACT DISORD IN , UNSP TRIMESTER; K83.1 - OBSTRUCTION OF BILE DUCT Status: Acute Current Visit: Yes Qualifiers: Trimester: third trimester Qualified Code(s): O26.613 - Liver and biliary tract disorders in , third trimester; K83.1 - Obstruction of bile duct (3) Rh negative state in antepartum period SNOMED Code(s): 930115019 ICD Code: O26.899 - OTH RELATED CONDITIONS, UNSPECIFIED TRIMESTER; Z67.91 - UNSPECIFIED BLOOD TYPE, RH NEGATIVE Status: Acute Current Visit: Yes (4) Vaginal delivery SNOMED Code(s): 345816033 ICD Code: O80 - ENCOUNTER FOR FULL-TERM UNCOMPLICATED DELIVERY Status: Acute Current Visit: Yes - Patient Summary/Data Complications: None Consults: None Recommended Follow-up Testing/Procedures: Follow up in 3 weeks for check Hospital Course: 29 y/o at 37 0/7 wks who presented for IOL for presumed cholestasis of pr egnancy. Induction done with 3 doses of cytotec initially. Patient then preferred to attempt a day of pumping which did not result in any signs of labor. Eventually did start pitocin for IOL. Made good change with this and underwent an uncomplicated . See delivery note. did well and was discharged home on PPD#1 - Patient Instructions Diet: Regular Diet as Tolerated Activity: As Tolerated Activity, Other: Pelvic rest for 6 weeks Driving: May Drive Today Showering/Bathing: May Shower Showering/Bathing, Other: May Bathe Notify Provider of: Fever, Increased Pain, Swelling and Redness, Drainage, Nausea and/or Vomiting - Discharge Plan *PRESCRIPTION DRUG MONITORING PROGRAM REVIEWED*: No *COPY OF PRESCRIPTION DRUG MONITORING REPORT IN PATIENT KATE: No Home Medications: Home Meds [place]-3/DHA/Epa/Fish Oil [[place] 3 500 Softgel] 2 each PO DAILY 07/11/20 [History] Vit C/Ascorbate Calcium,Sodium [Vitamin C] 500 mg PO DAILY 07/11/20 [History] Zinc 20 mg PO DAILY 07/11/20 [History] Ibuprofen [Motrin] 600 mg PO Q6H PRN tablet 07/15/20 [Rx] Patient Handouts: Breast Pumping Tips, [id number], Tips for a Good Latch, [id number], Care After Vaginal Delivery Referrals: Kathy Yoder MD [Primary Care Provider] - (3 weeks for check ) - Discharge Summary/Plan Comment DC Time >30 min.: No - Patient Data Vitals - Most Recent: Last Vital Signs Temp 36.7 C 07/14/20 20:45 Pulse 81 07/14/20 20:45 Resp 14 07/14/20 20:45 BP 125/90 07/14/20 20:45 Pulse Ox 96 07/14/20 20:45 Weight - Most Recent: 79.832 kg I&O - Last 24 hours: Intake & Output 07/14/20 07/15/20 07/15/20 22:59 06:59 14:59 Intake Total 1040 Balance 1040 Lab Results - Last 24 hrs: Laboratory Results - last 24 hr 07/11/20 07/14/20 Range/Units 15:49 12:12 Hepatitis C Antibody <0.1 (0.0-0.9) s/co ratio Blood Type Cancelled Gel Antibody Screen Cancelled Screen 0 ros/5 flds - neg RhIG Candidate? Yes Rhogam Indicated Cancelled Med Orders - Current: Current Medications Acetaminophen (Acetaminophen 325 Mg Tab) 650 mg PO Q4H PRN PRN Reason: mild pain or fever Benzocaine/Menthol (Benzocaine/Menthol 20%-0.5% [place] 56 Gm Canister) 0 gm TOP ASDIRECTED PRN PRN Reason: Perineal Comfort Measure Docusate Sodium (Docusate Sodium 100 Mg Cap) 100 mg PO BID PRN PRN Reason: Constipation Ibuprofen (Ibuprofen 600 Mg Tab) 600 mg PO Q6H PRN PRN Reason: Mild pain or fever Witch Melissa (Witch Melissa Medicated Pads 40/Jar) 1 pad TOP ASDIRECTED PRN PRN Reason: Perineal Comfort Measure Discontinued Medications Acetaminophen (Acetaminophen 325 Mg Tab) 650 mg PO Q4H PRN PRN Reason: Fever Calcium Carbonate/Glycine (Calcium Carbonate 500 Mg Tab.Chew) 1,000 mg PO Q2H PRN PRN Reason: Indigestion Diphenhydramine HCl (Diphenhydramine 50 Mg/Ml Sdv) 25 mg IVPUSH Q6H PRN PRN Reason: pruritis Ephedrine Sulfate (Ephedrine 50 Mg/Ml Sdv) 5 mg IVPUSH ASDIRECTED PRN PRN Reason: Hypotension Ephedrine Sulfate (Ephedrine 50 Mg/Ml Sdv) 5 mg IVPUSH ASDIRECTED PRN PRN Reason: Hypotension Fentanyl (Fentanyl 100 Mcg/2 Ml Sdv) 100 mcg EPIDUR Q3H PRN PRN Reason: Pain Fentanyl (Fentanyl 100 Mcg/2 Ml Sdv) 100 mcg EPIDUR Q3H PRN PRN Reason: Pain Fentanyl/Bupivacaine HCl (Bupivacaine/Fentanyl/Ns 100 Ml Bag) 100 ml EPIDUR ASDIRECTED PRN PRN Reason: Pain Fentanyl/Bupivacaine HCl (Bupivacaine/Fentanyl/Ns 100 Ml Bag) 100 ml EPIDUR ASDIRECTED VIV Oxytocin/Lactated Ringer's (Pitocin In Lr 10 Units/1,000 Ml) 10 unit in 1,000 mls @ 500 mls/hr IV .CONTINUOUS VIV Oxytocin/Lactated Ringer's (Pitocin In Lr 10 Units/1,000 Ml) 10 unit in 1,000 mls @ 12 mls/hr IV TITRATE VIV; Protocol Last Titration: 07/13/20 18:28 Dose: 20 munits/min, 120 mls/hr Documented by: Lactated Ringer's (Ringers, Lactated) 1,000 mls @ 100 mls/hr IV ASDIRECTED VIV Last Admin: 07/13/20 08:07 Dose: 100 mls/hr Documented by: Oxytocin/Lactated Ringer's (Pitocin In Lr 20 Units/1,000 Ml) 20 unit in 1,000 mls @ 63 mls/hr IV TITRATE VIV; Protocol Last Admin: 07/13/20 21:48 Dose: 63 mls/hr Documented by: Lidocaine HCl (Lidocaine 1% 50 Ml Mdv) Confirm Administered Dose 0 ml .ROUTE .[facility] ONE Stop: 05/06/21 05:34 Miscellaneous Medication (Phenylephrine Hcl In 0.9% Nacl 1 Mg/10 Ml Syringe) 0.1 mg IVPUSH Q10M PRN PRN Reason: Hypotension Misoprostol (Misoprostol 25 Mcg (1/4 Of 100 Mcg) Tab) Confirm Administered Dose 25 mcg .ROUTE .STK-MED ONE Stop: 07/11/20 16:38 Last Admin: 07/11/20 16:41 Dose: 25 mcg Documented by: Misoprostol (Misoprostol 25 Mcg (1/4 Of 100 Mcg) Tab) 25 mcg VAG Q4H [facility] Stop: 07/12/20 05:01 Last Admin: 07/11/20 23:41 Dose: 25 mcg Documented by: Misoprostol (Misoprostol 25 Mcg (1/4 Of 100 Mcg) Tab) 25 mcg VAG Q4H [facility] Stop: 07/12/20 08:01 Last Admin: 07/12/20 06:11 Dose: 25 mcg Documented by: Nalbuphine HCl (Nalbuphine 10 Mg/1 Ml Vial) 10 mg IVPUSH Q2H PRN PRN Reason: Pain Ondansetron HCl (Ondansetron 4 Mg/2 Ml Sdv) 4 mg IVPUSH ONETIME PRN PRN Reason: Nausea/Vomiting Sodium Chloride (Sodium Chloride 0.9% 10 Ml Syringe) 10 ml FLUSH ASDIRECTED PRN PRN Reason: Keep Vein Open
== END 2020-07-15 12:45 | disposition home or self-care (01) | DRG 805 ==
LOC: JD.OB 05:49 → OBSVTOIN 07-14 05:49 → JD.OB 07-14 05:50
PROVIDERS: ADMIT Obstetrics & Gynecology; ATTEND Obstetrics & Gynecology
PROC: 10E0XZZ Delivery of Products of Conception, External Approach (ICD-10-PCS; principal; 2020-07-14)
PROC: 3E0P7VZ Introduction of Hormone into Female Reproductive, Via Natural or Artificial Opening (ICD-10-PCS; 2020-07-14)
PROC: 3E033VJ Introduction of Other Hormone into Peripheral Vein, Percutaneous Approach (ICD-10-PCS; 2020-07-14)
PROC: 10907ZC Drainage of Amniotic Fluid, Therapeutic from Products of Conception, Via Natural or Artificial Opening (ICD-10-PCS; 2020-07-14)
PROC: 0HQ9XZZ Repair Perineum Skin, External Approach (ICD-10-PCS; 2020-07-14)
PROC: 4A1HXCZ Monitoring of Products of Conception, Cardiac Rate, External Approach (ICD-10-PCS; 2020-07-14)
PROC: 3E0334Z Introduction of Serum, Toxoid and Vaccine into Peripheral Vein, Percutaneous Approach (ICD-10-PCS; 2020-07-15)
DX: O26.62 Liver and biliary tract disorders in childbirth (principal); K83.1 Obstruction of bile duct; Z37.0 Single live birth; U07.1 COVID-19; O98.52 Other viral diseases complicating childbirth; Z67.41 Type O blood, Rh negative; Z3A.37 37 weeks gestation of pregnancy; O70.0 First degree perineal laceration during delivery; O26.893 Other specified pregnancy related conditions, third trimester; O76 Abnormality in fetal heart rate and rhythm complicating labor and delivery
CPT/HCPCS: 36415; 59025; 59409; 82239; 85025; 85461; 86592; 86803; 86850; 86900; 86901; A9270-GY; J2590; J2790; J7120; U0002

== ENCOUNTER 2022-02-09 18:59 | Inpatient (IN) | payer BC ==
[2022-02-09] MEDS ORDERED: Ondansetron 4 MG/2 ML SDV IVPUSH PRN (19:11)
[2022-02-09] MEDS ORDERED: Lidocaine 1% 50 ML MDV INJECT ONE (19:11)
[2022-02-09] MEDS ORDERED: Nalbuphine HCl 10 MG/ 1ML Amp IVPUSH PRN (19:11)
[2022-02-09] MEDS ORDERED: Sodium Chloride 0.9% 10 ML Syringe FLUSH PRN (19:11)
[2022-02-09] MEDS ORDERED: Lactated Ringers 1,000 ML IV SCH (19:15)
[2022-02-09] MEDS ORDERED: Oxytocin/Lactated Ringers 10 UNIT/1,000 ML BAG IV SCH ×2 (19:15)
[2022-02-09 19:55] LABS: ESTIMATED GFR 119 mL/min (>60)
[2022-02-09] MEDS ORDERED: Sodium Chloride 0.9% 10 ML Syringe FLUSH SCH (21:00)
[2022-02-10] MEDS ORDERED: Docusate Sodium 100 MG Cap PO PRN (07:23)
[2022-02-10] MEDS ORDERED: Acetaminophen 325 MG Tab PO PRN (07:23)
[2022-02-10] MEDS ORDERED: Ibuprofen 600 MG Tab PO PRN (07:23)
[2022-02-10] MEDS ORDERED: Witch Hazel Medicated Pads 40/Jar TOP PRN (07:23)
[2022-02-10] MEDS ORDERED: Benzocaine/Menthol 20%-0.5% Spray 78 GM Cannister TOP PRN (07:23)
== END 2022-02-11 09:25 | disposition home or self-care (01) | DRG 560 ==
LOC: JD.OBCHECK 18:59 → JD.OB 19:01 → OBSVTOIN 19:02 → JD.OB 02-10 01:33
PROVIDERS: ADMIT Family Medicine; ATTEND Family Medicine
PROC: 10E0XZZ Delivery of Products of Conception, External Approach (ICD-10-PCS; principal; 2022-02-09)
PROC: 10907ZC Drainage of Amniotic Fluid, Therapeutic from Products of Conception, Via Natural or Artificial Opening (ICD-10-PCS; 2022-02-09)
DX: O26.62 Liver and biliary tract disorders in childbirth (principal); K83.1 Obstruction of bile duct; Z37.0 Single live birth; O99.354 Diseases of the nervous system complicating childbirth; G40.909 Epilepsy, unspecified, not intractable, without status epilepticus; O69.81X0 Labor and delivery complicated by cord around neck, without compression, not applicable or unspecified; O48.0 Post-term pregnancy; Z3A.41 41 weeks gestation of pregnancy
CPT/HCPCS: 36415; 59025; 59409; 80053; 85025; 85461; 86592; 86850; 86900; 86901